=== PATIENT | female | born 1995 | race African-American/Black ===

== ENCOUNTER 2017-08-29 16:51 | Emergency (ER) | payer OTHER, MEDICAID ==
[~2017-08-29] VITALS: Ht 172.7 cm; Wt 60.0 kg
[2017-08-29 17:00] VITALS: BP 111/73; PULSE 72; RESP 16; TEMP 97.9; O2SAT 100
--- NOTE | 2017-08-29 20:47 | PD ---
HPI Chief Complaint: Injury Time Seen by Provider: 20:43 Travel History International Travel<30 days: No Contact w/Intl Traveler<30days: No Traveled to known affect area: No History of Present Illness HPI Patient is a 21-year-old female presenting to emerge from for evaluation of right hand pain. Patient states she was playing football yesterday when she landed on her outstretched hand. She was also hit in the hand by the football. She denies any head injury or loss of consciousness. She has no other physical complaints at this time. Patient states is painful to move her right first finger, she reports bruising and edema. She reports the pain is a 6 out of 10, she has not taken anything to alleviate the pain. She has been using ice for the swelling. She states that since the injury occurred initially she has been having pain that radiates up her forearm to the elbow. She denies any numbness, tingling, weakness. Symptom onset was gradual, symptoms are moderate in nature. There are no alleviating factors. Pain is exacerbated with movement and to touch. PFSH Past Medical History Medical History: Denies Significant Hx Diminished Hearing: No Immunizations Current: Yes ?: Not LMP: 08/05/17 : 0 Para: 0 Miscarriage: 0 : 0 Social History Alcohol Use: No Tobacco Use: No Substance Use: No Allergies-Medications (Allergen,Severity, Reaction): Coded Allergies: No Known Allergies (Unverified , 06/07/15) Reported Meds & Prescriptions Reported Meds & Active Scripts Active Review of Systems Except as stated in HPI: all other systems reviewed are Neg Musculoskeletal: Positive: Myalgias, Arthralgias, Edema, Pain Skin: Positive Change in Pigmentation Physical Exam Narrative GENERAL: Well-developed, well-nourished, alert -[place] female. Presenting in no acute distress. SKIN: Warm and dry. HEAD: Normocephalic. EYES: No scleral icterus. No injection or drainage. NECK: Supple, trachea midline. No JVD or lymphadenopathy. CARDIOVASCULAR: Regular rate and rhythm without murmurs, gallops, or rubs. RESPIRATORY: Breath sounds equal bilaterally. No accessory muscle use. GASTROINTESTINAL: Abdomen soft, non-tender, nondistended. MUSCULOSKELETAL: No cyanosis, mild edema to the right first finger. Ecchymosis noted to the plantar aspect of the right hand over the first MCP. 2+ radial pulse, brisk less than 3 second capillary refill. Decreased flexion and extension of right first finger. No obvious deformities noted. BACK: Nontender without obvious deformity. No CVA tenderness. Data Data Last Documented VS Vital Signs Date Time Temp Pulse Resp B/P (MAP) Pulse Ox O2 Delivery O2 Flow Rate FiO2 08/29/17 17:00 97.9 72 16 111/73 (86) 100 Orders Orders Hand, Complete ([id number]) (08/29/17 ) [facility] Medical Decision Making Medical Screen Exam Complete: Yes Emergency Medical Condition: Yes Interpretation(s) Vital Signs Date Time Temp Pulse Resp B/P (MAP) Pulse Ox O2 Delivery O2 Flow Rate FiO2 08/29/17 17:00 97.9 72 16 111/73 (86) 100 Differential Diagnosis Fracture versus sprain versus strain versus contusion versus other Narrative Course Patient is well-appearing 21-year-old female presenting for evaluation of right first finger pain after falling on outstretched hand yesterday. Patient is neurovascularly intact. She declined any pain medication at this time. She was given ice pack for comfort. Imaging ordered and pending. X-ray of the right hand shows no acute disease. Exam is consistent with a contusion. Patient is encouraged to rest, ice, elevate extremity. She is encouraged to continue gentle range of motion exercises and take ibuprofen as needed as directed for pain. She can follow-up with her primary doctor or return to emergency department for new worsening symptoms. She verbalized understanding of instructions. Patient is stable for discharge. Diagnosis Primary Impression: Contusion of hand Qualified Codes: S60.221A - Contusion of right hand, initial encounter Referrals: Primary Care Physician Patient Instructions: Contusion in Adults (ED), General Instructions Additional Instructions: Rest, ice, elevate extremity Take medications as directed and as needed for pain Follow-up with your primary doctor Return to emergency department for any new worsening symptoms Med/Other Pt SpecificInfo: Prescription(s) given Scripts Ibuprofen (Ibuprofen) 800 Mg Tab 800 MG PO Q6HR Y for PAIN, #40 TAB 0 Refills Prov: Uma Francis 08/29/17 Disposition: 01 DISCHARGE HOME Condition: Stable Uma Francis Aug 29, 2017 20:47
--- NOTE | 2017-08-29 21:15 | RADRPT ---
EXAM DATE/TIME: 08/29/2017 20:35 [facility] COMPARISON: No previous studies available for comparison. INDICATIONS : Right hand bruising on palm near first digit MEDICAL HISTORY : None. SURGICAL HISTORY : None. ENCOUNTER: Initial ACUITY: 1 day PAIN SCORE: 7/10 LOCATION: Right Thumb FINDINGS: Three view examination of the right hand demonstrates no soft tissue swelling, dislocation, or fractu re. The carpal bones appear intact. The interphalangeal and metacarpophalangeal joints are intact. Bony mineralization is normal. CONCLUSION: No acute disease. Jesu Parham MD on August 29, 2017 at 21:12 Board Certified Radiologist. This report was verified electronically.
[2017-08-29] MEDS ORDERED: IBUP1TAB7 PO (21:18)
== END 2017-08-29 21:26 | disposition home or self-care (01) ==
LOC: NEPD 16:51
DX: S60.221A Contusion of right hand, initial encounter (principal); X58.XXXA Exposure to other specified factors, initial encounter; Y93.61 Activity, american tackle football
CPT/HCPCS: 73130; 99283